=== PATIENT | female | born 1975 | race Hispanic/Latino ===

== ENCOUNTER 2019-01-11 05:38 | Inpatient (IN) | payer SELFPAY ==
[~2019-01-11] VITALS: Ht 157.5 cm; Wt 154.2 kg
--- OUTSIDE RECORDS SUMMARY | 2019-01-11 05:40 | XMS REPORT ---
Author Author Admin, [place] Organization Formerly [facility] Address Unknown Phone Unavailable Allergies, Adverse Reactions, Alerts Allergy Name Reaction Description Start Date Severity Status Provider Allergies Unknown Conditions or Problems Problem Name Problem Code Onset Date Status Entry Date Provider Comment Standard Description Annotate Need for prophylactic vaccination with unspecified combined vaccine V06.9 Active Shy Lazcano COMMUNITY HEALTH EDUCATOR Need for prophylactic vaccination with unspecified combined vaccine Medication List Medication Instructions Start Date Stop Date Generic Name NDC Status Provider Patient Instruction Drug Treatment Unknown - unknown Immunizations Vaccine Administration Date Value Standard Description TB-PPD #2, interpretation of results negative TB-PPD #2, results 0 PPD results in mm 0 TB-PPD, interpretation of results negative Vital Signs Date Name Value Unit Range Description blood pressure, diastolic 78 mm[Hg] BP [place] blood pressure, systolic 118 mm[Hg] BP sys pulse rate E&M 64 /min Heart rate respiratory rate E&M 20 /min Resp rate temperature E&M 97.0 [degF] Body temperature Diagnostic Results Date Name Value Unit Range Description Append: ppd reading - Challenge tests PPD results in mm 0 mm Encounters Date Encounter Provider Code Facility 09:16:41 CDT Est Patient Nurse - Only Visit - 35040 Shy Lazcano COMMUNITY HEALTH EDUCATOR CPT-39915 [facility] 16:57:47 CDT Est Patient Nurse - Only Visit - 44837 Shy Lazcano COMMUNITY HEALTH EDUCATOR CPT-14970 [facility] Procedures Code Procedure Name Date Entry Date Standard Description CPT-09711 Admin of Vaccine - Injection - 1 09:16:41 CDT CPT-34402 PPD - In House 09:16:41 CDT CPT-16019 Admin of Vaccine - Injection - 1 16:57:47 CDT CPT-13438 PPD - In House 16:57:47 CDT
--- OUTSIDE RECORDS SUMMARY | 2019-01-11 05:40 | XMS REPORT ---
Author Author [facility] Address Unknown Phone Unavailable Care Team Providers Care Shank Piece Tacker Name Role Phone Unavailable Unavailable Problems This patient has no known problems. Allergies, Adverse Reactions, Alerts This patient has no known allergies or adverse reactions. Medications This patient has no known medications. Encounters Start Date/Time End Date/Time Encounter Type Admission Type Attending [facility] Facility Care Department Encounter ID 2018-02-18 10:18:48 2018-02-18 10:18:48 Outpatient [facility] [id number] 2018-02-18 08:49:17 2018-02-18 08:49:17 Outpatient [facility] [id number] 2017-07-30 00:00:00 2017-07-30 00:00:00 Outpatient [facility] [id number] 2017-06-03 00:00:00 2017-06-03 00:00:00 Outpatient [facility] [id number] 2017-06-01 08:19:29 2017-06-01 08:19:29 Outpatient [facility] [id number] 2017-04-06 15:13:56 2017-04-06 15:13:56 Outpatient [facility] [id number] 2017-04-06 14:41:02 2017-04-06 14:41:02 Outpatient [facility] [id number] 2017-03-20 09:55:31 2017-03-20 09:55:31 Outpatient [facility] [id number]
[2019-01-11] MEDS ORDERED: PIPER-TAZ 3.375 GM 50 ML IV STA (05:45)
[2019-01-11] MEDS ORDERED: VANCOMYCIN 1GM/NS 250 ML 250 ML IV STA (05:45)
[2019-01-11] MEDS ORDERED: ACETAMINOPHEN 325 MG TAB PO ONE (05:45)
[2019-01-11] MEDS ORDERED: SODIUM CHLORIDE 0.9% 1000ML 1,000 ML IV ONE (05:45)
[2019-01-11] MEDS ORDERED: ACETAMINOPHEN 325 MG TAB ONE (05:58)
[2019-01-11] MEDS ORDERED: ONDANSETRON HCL INJ 2MG/ML 2ML 2 MG/ML VIAL ONE (05:58)
[2019-01-11] MEDS ORDERED: PIPER-TAZ 3.375 GM 50 ML ONE (05:59)
[2019-01-11] MEDS ORDERED: VANCOMYCIN 1GM/NS 250 ML 250 ML ONE (06:07)
[2019-01-11 06:19] LABS: BASOPHILS % 0.1 % (0.0-1.0); EOSINOPHILS % 0.3 % (0.0-6.0); HEMATOCRIT 39.1 % (34.2-44.1); HEMOGLOBIN 12.7 g/dL (12.0-16.0); LYMPHOCYTES % 6.7 % (18.0-39.1); MEAN CORPUSCULAR HEMOGLOBIN 30.7 pg (28-32); MEAN CORPUSCULAR HGB CONC 32.5 g/dL (31-35); MEAN CORPUSCULAR VOLUME 94.4 fL (81-99); MONOCYTES # (AUTO) 0.7 (0.2-0.8); MONOCYTES % 5.1 % (4.4-11.3); NEUTROPHILS # (AUTO) 12.4 (2.1-6.9); NEUTROPHILS % 87.2 % (38.7-80.0); PLATELET COUNT 157 x10e3/uL (140-360); RED BLOOD COUNT 4.14 x10e6/uL (3.6-5.1); RED CELL DISTRIBUTION WIDTH 13.2 % (11.7-14.4)
[2019-01-11 06:39] LABS: ALANINE AMINOTRANSFERASE 20 IU/L (0-55); ALBUMIN 2.8 g/dL (3.5-5.0); ALBUMIN/GLOBULIN RATIO 0.6 (0.8-2.0); ALKALINE PHOSPHATASE 89 IU/L (40-150); ANION GAP 13.9 mmol/L (8-16); BLOOD UREA NITROGEN 9 mg/dL (7-26); BUN/CREATININE RATIO 10 (6-25); CALCIUM 9.1 mg/dL (8.4-10.2); CARBON DIOXIDE 23 mmol/L (22-29); CHLORIDE 97 mmol/L (98-107); CREATININE, SERUM 0.86 mg/dL (0.57-1.11); EST GLOMERULAR FILTRATION RATE > 60 ML/MIN (60-); GLUCOSE 158 mg/dL (74-118); SODIUM 131 mmol/L (136-145)
[2019-01-11 06:41] LABS: POTASSIUM 2.9 mmol/L (3.5-5.1)
[2019-01-11] MEDS ORDERED: POTASSIUM CHLORIDE 20 MEQ TAB CR PO STA (06:41)
[2019-01-11] MEDS ORDERED: VANCOMYCIN 1GM/NS 250 ML 250 ML IV SCH (06:45)
[2019-01-11] MEDS ORDERED: ACETAMINOPHEN 325 MG TAB PO PRN ×2 (06:45→18:30)
[2019-01-11] MEDS ORDERED: ONDANSETRON HCL INJ 2MG/ML 2ML 2 MG/ML VIAL IV PRN ×2 (06:45→18:30)
[2019-01-11] MEDS: SODIUM CHLORIDE 0.9% 1000ML 1,000 ML IV SCH ×2 (06:54→14:34)
[2019-01-11] MEDS: PIPER-TAZ 3.375 GM 50 ML IV SCH ×3 (11:38→23:18)
--- NOTE | 2019-01-11 11:38 | NUR ---
REC'D REPORT IN WALKING ROUNDS WITH HARLEY Kamara FOR CONTUNUITY OF CARE.
--- NOTE | 2019-01-11 13:48 | NUR ---
RM 286 ASSIGNED.
[2019-01-11 14:47] VITALS: BP 108/57
[2019-01-11 15:38] VITALS: BP 108/57
[2019-01-11] MEDS: VANCOMYCIN 1GM/NS 250 ML 250 ML IV SCH (17:59)
[2019-01-11] MEDS ORDERED: TRAMADOL HCL 50 MG TAB PO PRN (18:30)
[2019-01-11] MEDS ORDERED: HYDRALAZINE HCL 20 MG/ML VIAL IV PRN (18:30)
--- NOTE | 2019-01-11 19:00 | NUR ---
RECEIVED REPORT FROM DAY NURSE. PATIENT IS RESTING COMFORTABLY IN BED. BED IS IN LOWEST POSITION AND CALL CAMP[place] IS WITHIN REACH. WILL CONTINUE TO MONITOR PATIENT.
[2019-01-11 20:00] VITALS: BP 141/64
--- NOTE | 2019-01-11 22:30 | NUR ---
received final blood work up report from laboratory. Spoke with on-call healthcare provider. no new orders received. will continue to monitor patient.
[2019-01-12] VITALS (9 sets, daily range): BP systolic 98–123; BP diastolic 54–70
[2019-01-12 05:26] LABS: BASOPHILS % 0.2 % (0.0-1.0); EOSINOPHILS % 0.4 % (0.0-6.0); HEMATOCRIT 36.7 % (34.2-44.1); HEMOGLOBIN 12.1 g/dL (12.0-16.0); LYMPHOCYTES # (AUTO) 1.2 (1.0-3.2); LYMPHOCYTES % 10.4 % (18.0-39.1); MEAN CORPUSCULAR HEMOGLOBIN 31.2 pg (28-32); MEAN CORPUSCULAR VOLUME 94.6 fL (81-99); NEUTROPHILS # (AUTO) 8.8 (2.1-6.9); NEUTROPHILS % 79.5 % (38.7-80.0); PLATELET COUNT 157 x10e3/uL (140-360); RED BLOOD COUNT 3.88 x10e6/uL (3.6-5.1); RED CELL DISTRIBUTION WIDTH 13.3 % (11.7-14.4)
[2019-01-12 05:50] LABS: ALANINE AMINOTRANSFERASE 16 IU/L (0-55); ALBUMIN 2.5 g/dL (3.5-5.0); ALBUMIN/GLOBULIN RATIO 0.6 (0.8-2.0); ALKALINE PHOSPHATASE 82 IU/L (40-150); ANION GAP 12.1 mmol/L (8-16); BLOOD UREA NITROGEN 7 mg/dL (7-26); BUN/CREATININE RATIO 9 (6-25); CALCIUM 8.7 mg/dL (8.4-10.2); CARBON DIOXIDE 21 mmol/L (22-29); CHLORIDE 102 mmol/L (98-107); CHOL/HDL RATIO 4.2 (3.0-3.6); CHOLESTEROL 108 MD/DL (0-199); CREATININE, SERUM 0.77 mg/dL (0.57-1.11); EST GLOMERULAR FILTRATION RATE > 60 ML/MIN (60-); GLUCOSE 123 mg/dL (74-118); HDL CHOLESTEROL 26 MG/DL (40-60); LDL CHOLESTEROL 59 MG/DL (60-130); POTASSIUM 3.1 mmol/L (3.5-5.1); SODIUM 132 mmol/L (136-145); TRIGLYCERIDES 115 MG/DL (0-149)
[2019-01-12] MEDS ORDERED: POTASSIUM CHLORIDE 20 MEQ TAB CR PO STA (05:55)
[2019-01-12 06:10] LABS: THYROID STIMULATING HORMONE 2.464 uIU/mL (0.350-4.940)
[2019-01-12] MEDS ORDERED: DIPHENHYDRAMINE HCL INJ 50 MG/ML VIAL IV PRN (06:15)
[2019-01-12] MEDS: PIPER-TAZ 3.375 GM 50 ML IV SCH ×2 (06:18→11:02)
[2019-01-12] MEDS: VANCOMYCIN 1GM/NS 250 ML 250 ML IV SCH ×2 (06:45→18:30)
--- NOTE | 2019-01-12 06:50 | NUR ---
RECEIVED BEDSIDE SHIFT REPORT FROM OFF GOING NURSE. PATIENT IS RESTING IN BED. NO ACUTE DISTRESS NOTED. CALL LIGHT WITHIN REACH. BED IN THE LOWEST POSITION.
--- NOTE | 2019-01-12 08:22 | NUR ---
GAVE PACKET OF INFORMATION WITH COMMUNITY [employer] FOR ASSISTANCE WITH LOW TO NO INCOME TO PATIENT. RESOURCES THAT PATIENT MAY BE ABLE TO FOLLOW UP UPON DISCHARGE. PT EDUCATED ON EACH RESOURCE AND UNDERSTANDING HOW TO FOLLOW UP TO SEE IF QUALIFIED FOR EACH RESOURCE.
[2019-01-12] MEDS: DIPHENHYDRAMINE HCL 25 MG CAP PO PRN (14:36)
--- NOTE | 2019-01-12 19:18 | NUR ---
RECEIVED REPORT FROM PREVIOUS NURSE. CALL LIGHT WITHIN REACH. PATIENT IN BED.
--- NOTE | 2019-01-12 19:28 | Consultation ---
DATE OF CONSULTATION: HISTORY OF PRESENT ILLNESS: Ms. Moser is a 43-year-old female with history of morbidly obese patient, comes in with redness, cellulitis of her left lower extremity, started few days ago, came here and took oral antibiotic, but was not getting any better, so the patient came back again, where she is being admitted. PAST MEDICAL HISTORY: Obesity. PAST SURGICAL HISTORY: She denies. ALLERGIES: NKA. SOCIAL HISTORY: No smoking, drug abuse, or alcohol abuse. FAMILY HISTORY: Otherwise, unremarkable. PHYSICAL EXAMINATION: GENERAL: She is currently alert, oriented, does not seem to be in acute distress. EXTREMITIES: The leg there is a redness and swelling all the way to from the ankle to the knee. IMPRESSION: 1. Bacteremia gram-positive cocci. 2. Cellulitis of the leg. Agree with vancomycin, however, we will adjust for her kidney function and adjust for weight. We will follow trough. We will follow clinically. Further recommendations depending on clinical course. MD YAYA Jones/MODL /[id number]
[2019-01-13] VITALS (8 sets, daily range): BP systolic 105–148; BP diastolic 53–69
[2019-01-13 04:11] LABS: BASOPHILS % 0.3 % (0.0-1.0); EOSINOPHILS # (AUTO) 0.1 (0.0-0.4); EOSINOPHILS % 1.1 % (0.0-6.0); HEMATOCRIT 36.3 % (34.2-44.1); HEMOGLOBIN 11.5 g/dL (12.0-16.0); LYMPHOCYTES # (AUTO) 1.5 (1.0-3.2); LYMPHOCYTES % 15.5 % (18.0-39.1); MEAN CORPUSCULAR HEMOGLOBIN 30.6 pg (28-32); MEAN CORPUSCULAR HGB CONC 31.7 g/dL (31-35); MEAN CORPUSCULAR VOLUME 96.5 fL (81-99); MONOCYTES # (AUTO) 1.4 (0.2-0.8); MONOCYTES % 14.3 % (4.4-11.3); NEUTROPHILS # (AUTO) 6.4 (2.1-6.9); PLATELET COUNT 198 x10e3/uL (140-360); RED BLOOD COUNT 3.76 x10e6/uL (3.6-5.1); RED CELL DISTRIBUTION WIDTH 13.4 % (11.7-14.4)
[2019-01-13 04:28] LABS: ANION GAP 13.2 mmol/L (8-16); BLOOD UREA NITROGEN 6 mg/dL (7-26); BUN/CREATININE RATIO 9 (6-25); CALCIUM 8.8 mg/dL (8.4-10.2); CARBON DIOXIDE 22 mmol/L (22-29); CHLORIDE 105 mmol/L (98-107); EST GLOMERULAR FILTRATION RATE > 60 ML/MIN (60-); GLUCOSE 121 mg/dL (74-118); POTASSIUM 3.2 mmol/L (3.5-5.1); SODIUM 137 mmol/L (136-145)
[2019-01-13] MEDS ORDERED: POTASSIUM CHLORIDE 20 MEQ TAB CR PO STA (05:01)
[2019-01-13] MEDS: VANCOMYCIN 1GM/NS 250 ML 250 ML IV SCH ×2 (05:23→17:00)
--- NOTE | 2019-01-13 06:50 | NUR ---
RECEIVED BEDSIDE SHIFT REPORT FROM OFF GOING NURSE. PATIENT IS IN STABLE CONDITION. CALL LIGHT WITHIN REACH. BED IN THE LOWEST POSITION.
--- NOTE | 2019-01-13 07:14 | NUR ---
Gave report to oncoming nurse. call light within reach. Patient in bed.
[2019-01-13] MEDS: POTASSIUM CHLORIDE 20 MEQ TAB CR PO SCH ×2 (09:41→17:00)
[2019-01-13] MEDS: FUROSEMIDE INJ 10 MG/ML 4 ML VIAL IV SCH ×2 (09:41→21:00)
--- NOTE | 2019-01-13 10:35 | NUR ---
FIRST UNIT OF BLOOD STARTED AT 1020. NO S/S OF ADVERSE REACTION NOTED. WILL CONTINUE TO MONITOR. Addendum: 01/13/19 at 1556 by NISA MEDINA RN WRONG PATIENT
[2019-01-13] MEDS ORDERED: ONDANSETRON HCL 4 MG ORAL DISINTEGRATING TAB PO PRN (11:45)
--- NOTE | 2019-01-13 19:20 | NUR ---
Received report from previous nurse. Call light within reach. Patient in bed. Family at bedside.
--- NOTE | 2019-01-13 19:36 | NUR ---
BEDSIDE SHIFT REPORT GIVEN TO ONCOMING NURSE. NO ACUTE DISTRESS NOTED. FAMILY AT BEDSIDE. CALL LIGHT WITHIN REACH. BED IN THE LOWEST POSITION.
--- NOTE | 2019-01-13 21:15 | NUR ---
Got consent for PICC placement. Called Radiology to have the person place the PICC line
[2019-01-14] VITALS (9 sets, daily range): BP systolic 106–120; BP diastolic 50–84
--- NOTE | 2019-01-14 03:00 | NUR ---
The yeison for the PICC line placement arrived and placing a PICC in the patient
--- NOTE | 2019-01-14 03:27 | Diagnostic Imaging Report ---
EXAMINATION: CHEST XRAY LINE PLACEMENT INDICATION: PICC. COMPARISON: None FINDINGS: TUBES and LINES: Right arm PICC with tip in the lower SVC near the cavoatrial junction. LUNGS: Low lung volumes. There is no evidence of pneumonia or pulmonary edema. PLEURA: No pleural effusion or pneumothorax. HEART AND MEDIASTINUM: The cardiomediastinal silhouette is unremarkable. BONES AND SOFT TISSUES: No acute osseous abnormality. UPPER ABDOMEN: No free air under the diaphragm. IMPRESSION: Right arm PICC with tip in the lower SVC near the cavoatrial junction. No evidence of pneumothorax. Signed by: Dr. Toni Miller MD on 01/14/2019 3:23 AM
[2019-01-14 03:59] LABS: BASOPHILS % 0.4 % (0.0-1.0); EOSINOPHILS # (AUTO) 0.1 (0.0-0.4); EOSINOPHILS % 1.1 % (0.0-6.0); HEMATOCRIT 36.7 % (34.2-44.1); HEMOGLOBIN 11.9 g/dL (12.0-16.0); LYMPHOCYTES # (AUTO) 1.7 (1.0-3.2); LYMPHOCYTES % 15.3 % (18.0-39.1); MEAN CORPUSCULAR HEMOGLOBIN 31.1 pg (28-32); MEAN CORPUSCULAR HGB CONC 32.4 g/dL (31-35); MEAN CORPUSCULAR VOLUME 95.8 fL (81-99); MONOCYTES # (AUTO) 1.3 (0.2-0.8); MONOCYTES % 11.5 % (4.4-11.3); NEUTROPHILS % 70.3 % (38.7-80.0); PLATELET COUNT 220 x10e3/uL (140-360); RED BLOOD COUNT 3.83 x10e6/uL (3.6-5.1); RED CELL DISTRIBUTION WIDTH 13.4 % (11.7-14.4)
[2019-01-14 04:34] LABS: ANION GAP 16.4 mmol/L (8-16); BLOOD UREA NITROGEN 7 mg/dL (7-26); BUN/CREATININE RATIO 10 (6-25); CALCIUM 8.8 mg/dL (8.4-10.2); CARBON DIOXIDE 22 mmol/L (22-29); CHLORIDE 99 mmol/L (98-107); EST GLOMERULAR FILTRATION RATE > 60 ML/MIN (60-); GLUCOSE 141 mg/dL (74-118); POTASSIUM 3.4 mmol/L (3.5-5.1); SODIUM 134 mmol/L (136-145)
[2019-01-14] MEDS ORDERED: POTASSIUM CHLORIDE 20 MEQ TAB CR PO STA (06:16)
[2019-01-14] MEDS: VANCOMYCIN 1GM/NS 250 ML 250 ML IV SCH ×2 (06:17→17:32)
--- NOTE | 2019-01-14 07:09 | NUR ---
Gave report to oncoming nurse. call light within reach. patient in bed. Mother at bedside
[2019-01-14] MEDS ORDERED: FUROSEMIDE INJ 10 MG/ML 4 ML VIAL IV SCH (09:00)
[2019-01-14] MEDS: FUROSEMIDE 20 MG TAB PO SCH ×2 (09:35→21:52)
--- NOTE | 2019-01-14 15:22 | NUR ---
patient up in bed, denies any pain, not in any distress, family at bed side
--- NOTE | 2019-01-14 19:15 | NUR ---
Patient received from Dayshift RN, patient awake alert, respirations even and unlabored, no c/o pain or discomfort at this time, family sitting at bedside, IV access intact, dressing C/D/I , patent, IV abx therapy completed, IV unhooked, oriented to oncoming staff, will continue to monitor
--- NOTE | 2019-01-14 19:20 | NUR ---
SBAR report received from Dayshift RN, bedside rounding completed, patient awake alert, oriented X 3, respirations even and unlabored, denies pain/discomfort at this time, able to make needs known verbally, bed in lowest position, call light within reach, will continue to monitor
--- NOTE | 2019-01-14 22:00 | NUR ---
bed alarmed, patient seen walking to bathroom independently, advised him to call prior to ambulating for safety, became upset stating "Who put that on, that is not suppose to be on, can you turn that off" advised patient that it will remain on for safety, waited for patient to finish toileting, safety returned to bed, RLF IV site flushed patent, IV abt therapy started patient tolerated well Addendum: 01/15/19 at 0304 by CELIA FITCH RN wrong patient
[2019-01-15] VITALS (8 sets, daily range): BP systolic 95–180; BP diastolic 52–70
--- NOTE | 2019-01-15 03:30 | NUR ---
patient am labs drawn by HARLEY Bolaños from PICC line site using aseptic technique, blood drawn and sent to lab
[2019-01-15 03:57] LABS: BASOPHILS % 0.3 % (0.0-1.0); EOSINOPHILS # (AUTO) 0.1 (0.0-0.4); EOSINOPHILS % 1.2 % (0.0-6.0); HEMATOCRIT 35.5 % (34.2-44.1); HEMOGLOBIN 11.5 g/dL (12.0-16.0); LYMPHOCYTES # (AUTO) 1.7 (1.0-3.2); LYMPHOCYTES % 14.4 % (18.0-39.1); MEAN CORPUSCULAR HEMOGLOBIN 31.1 pg (28-32); MEAN CORPUSCULAR HGB CONC 32.4 g/dL (31-35); MEAN CORPUSCULAR VOLUME 95.9 fL (81-99); MONOCYTES # (AUTO) 1.4 (0.2-0.8); MONOCYTES % 11.3 % (4.4-11.3); NEUTROPHILS # (AUTO) 8.5 (2.1-6.9); NEUTROPHILS % 70.7 % (38.7-80.0); PLATELET COUNT 217 x10e3/uL (140-360); RED CELL DISTRIBUTION WIDTH 13.2 % (11.7-14.4)
[2019-01-15 04:14] LABS: ANION GAP 13.4 mmol/L (8-16); BLOOD UREA NITROGEN 7 mg/dL (7-26); BUN/CREATININE RATIO 10 (6-25); CALCIUM 8.5 mg/dL (8.4-10.2); CARBON DIOXIDE 26 mmol/L (22-29); CHLORIDE 100 mmol/L (98-107); CREATININE, SERUM 0.69 mg/dL (0.57-1.11); EST GLOMERULAR FILTRATION RATE > 60 ML/MIN (60-); GLUCOSE 160 mg/dL (74-118); POTASSIUM 3.4 mmol/L (3.5-5.1); SODIUM 136 mmol/L (136-145)
[2019-01-15] MEDS: VANCOMYCIN 1GM/NS 250 ML 250 ML IV SCH (05:57)
--- NOTE | 2019-01-15 06:05 | NUR ---
Vancomycin given via RENETTA PICC lumen X 2 patent, flushes well, good blood return, no s/sx of infiltration noted, dressing C/D/I
--- NOTE | 2019-01-15 06:50 | NUR ---
RECEIVED BEDSIDE SHIFT REPORT FROM OFF GOING NURSE. PATIENT IS IN STABLE CONDITION. MOTHER AT BEDSIDE. CALL LIGHT WITHIN REACH. BED IN THE LOWEST POSITION.
--- NOTE | 2019-01-15 06:58 | NUR ---
offgoing SBAR report given to Day shift RN, at bedside, patient seen resting with eyes closed, easily awaken, respirations even and unlabored, skin warm dry, introduced to oncoming shift RN, patient was made aware by MD that she will not be discharged today
[2019-01-15] MEDS ORDERED: POTASSIUM CHLORIDE 20 MEQ TAB CR PO STA (07:37)
[2019-01-15 08:10] LABS: NEUTROPHILS % (MANUAL) 70 % (40-74)
[2019-01-15 08:11] LABS: ANISOCYTOSIS SLIGHT; LYMPHOCYTES % (MANUAL) 21 % (19-48); METAMYELOCYTES % (MANUAL) 2 % (0-0); MONOCYTES % (MANUAL) 6 % (3.4-9.0); NUCLEATED RED BLOOD CELLS 1; PLATELET ESTIMATE ADEQUATE; PLATELET MORPHOLOGY COMMENT NORMAL; RBC MORPHOLOGY COMMENT ABNORMAL
[2019-01-15] MEDS: FUROSEMIDE 20 MG TAB PO SCH ×2 (08:49→21:40)
[2019-01-15] MEDS: CEFTRIAXONE SOD 1 GM/NS 50 ML 50 ML IV SCH ×2 (11:26→22:36)
[2019-01-15] MEDS: DIPHENHYDRAMINE HCL 25 MG CAP PO PRN (11:50)
[2019-01-15] MEDS ORDERED: PIPER-TAZ 3.375 GM 50 ML IV SCH (12:00)
--- NOTE | 2019-01-15 19:14 | NUR ---
BEDSIDE SHIFT REPORT GIVEN TO ONCOMING NURSE. PATIENT IS IN STABLE CONDITION. FAMILY AT BEDSIDE. CALL LIGHT WITHIN REACH. BED IN THE LOWEST POSITION.
[2019-01-16] VITALS (8 sets, daily range): BP systolic 105–121; BP diastolic 53–65
--- NOTE | 2019-01-16 00:20 | NUR ---
Assessment done.no resp.distress.no pain voiced.voided.weeping from left lower extremity.bed locked and in lowest position.phone and call light within reach.instructed to call for assistance as needed.
--- NOTE | 2019-01-16 06:10 | NUR ---
WOUND CULTURE COLLECTED FROM LEFT LEG AND SENT TO THE LAB.
--- NOTE | 2019-01-16 06:50 | NUR ---
RECEIVED BEDSIDE SHIFT REPORT RECEIVED FROM OFF GOING NURSE. PATIENT IS IN STABLE CONDITION. AT BEDSIDE. CALL LIGHT WITHIN REACH. BED IN THE LOWEST POSITION.
--- NOTE | 2019-01-16 07:00 | NUR ---
Bed side shift report given to the oncoming Rn.stable condition.
[2019-01-16] MEDS: FUROSEMIDE 20 MG TAB PO SCH ×2 (08:02→20:31)
[2019-01-16] MEDS: CEFTRIAXONE SOD 1 GM/NS 50 ML 50 ML IV SCH ×2 (09:45→22:45)
[2019-01-16] MEDS: DIPHENHYDRAMINE HCL 25 MG CAP PO PRN (15:34)
--- NOTE | 2019-01-16 16:05 | NUR ---
Visit made by the Spiritual Care Department Pastoral Visitor, Carlos Marquez. PV provided pastoral presence, prayer, hospitality, communion, and supportive listening. Pastoral Visitor informed pt/family of the scope of Care Director Rn Services and availability. SCOTT MARION Drill Doctor Spiritual Care Department O: [phone] Pager: [phone] ([phone] number calling from)
--- NOTE | 2019-01-16 19:15 | NUR ---
patient received awake, alert, lying quietly in bed. no c/o pain noted. pm assessment complete. mom noted at the bedside. patient instructed to call for assistance when needed.
--- NOTE | 2019-01-16 19:16 | NUR ---
BEDSIDE SHIFT REPORT GIVEN TO ONCOMING NURSE. PATIENT IS RESTING IN BED. FAMILY AT BEDSIDE. CALL LIGHT WITHIN REACH. BED IN THE LOWEST POSITION.
[2019-01-17] VITALS (8 sets, daily range): BP systolic 99–118; BP diastolic 52–62
--- NOTE | 2019-01-17 03:30 | NUR ---
am labs drawn from right upper arm picc line without difficulty at this time and sent to lab.
[2019-01-17 03:39] LABS: BASOPHILS % 0.4 % (0.0-1.0); EOSINOPHILS # (AUTO) 0.2 (0.0-0.4); EOSINOPHILS % 1.5 % (0.0-6.0); HEMATOCRIT 35.3 % (34.2-44.1); HEMOGLOBIN 11.3 g/dL (12.0-16.0); LYMPHOCYTES # (AUTO) 1.9 (1.0-3.2); LYMPHOCYTES % 18.8 % (18.0-39.1); MEAN CORPUSCULAR HEMOGLOBIN 30.5 pg (28-32); MEAN CORPUSCULAR VOLUME 95.1 fL (81-99); NEUTROPHILS # (AUTO) 6.6 (2.1-6.9); NEUTROPHILS % 65.2 % (38.7-80.0); PLATELET COUNT 225 x10e3/uL (140-360); RED BLOOD COUNT 3.71 x10e6/uL (3.6-5.1); RED CELL DISTRIBUTION WIDTH 13.2 % (11.7-14.4)
[2019-01-17 03:50] LABS: ANION GAP 12.4 mmol/L (8-16); BLOOD UREA NITROGEN 8 mg/dL (7-26); BUN/CREATININE RATIO 12 (6-25); CALCIUM 8.6 mg/dL (8.4-10.2); CARBON DIOXIDE 28 mmol/L (22-29); CHLORIDE 96 mmol/L (98-107); CREATININE, SERUM 0.66 mg/dL (0.57-1.11); EST GLOMERULAR FILTRATION RATE > 60 ML/MIN (60-); GLUCOSE 141 mg/dL (74-118); POTASSIUM 3.4 mmol/L (3.5-5.1); SODIUM 133 mmol/L (136-145)
[2019-01-17] MEDS ORDERED: POTASSIUM CHLORIDE 20 MEQ TAB CR PO STA (05:36)
--- NOTE | 2019-01-17 05:45 | NUR ---
am k+ 3.4 k dur 20meq po given per orders at this time.
[2019-01-17] MEDS: FUROSEMIDE 20 MG TAB PO SCH ×2 (08:38→20:51)
[2019-01-17 09:09] LABS: BAND NEUTROPHILS % (MANUAL) 1 %; LYMPHOCYTES % (MANUAL) 17 % (19-48); MONOCYTES % (MANUAL) 13 % (3.4-9.0); NEUTROPHILS % (MANUAL) 69 % (40-74)
[2019-01-17 09:11] LABS: ANISOCYTOSIS SLIG; HELMET CELLS RARE; OVALOCYTES FEW; PLATELET ESTIMATE ADEQUATE; PLATELET MORPHOLOGY COMMENT FEW LARGE; POIKILOCYTOSIS SLIGHT; RBC MORPHOLOGY COMMENT ABNORMAL
[2019-01-17] MEDS: CEFTRIAXONE SOD 1 GM/NS 50 ML 50 ML IV SCH ×2 (10:28→22:45)
--- NOTE | 2019-01-17 13:56 | NUR ---
called and left voice message to woundcare regarding the consult. Patient resting in bed , not in any distress
--- NOTE | 2019-01-17 14:27 | NUR ---
Nutrition Screen Note RD Recommendation for Physician: - Continue current diet Plan of Care: RD following, monitoring for tolerance and adequacy Nutrition reason for involvement: LOS Primary Diagnose(s): LLE cellulitis PMH: obesity Ht: 62 in Wt: 340 lb BMI: 62.2 kg/m2 IBW: [address] Assessment: (01/17) 43 YOF admitted for LLE cellulitis, seen today for LOS. 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 Pt denies any N/V/C/D. Pt reports UBW of 397 lb, pt with wt of 428.8 lb per bed scale at time of visit- questionable admit wt, pt denies wt loss. Chart reviewed. Labs and meds reviewed. Pt with no questions or concerns at time of visit. Pt discussed during am rounds. Will continue to monitor. Current Diet: Cardiac Malnutrition Evaluation (01/17/19) The patient does not meet criteria for a specified degree of malnutrition at this time. Will re-evaluate at follow-up as appropriate. Diet Education Needs Assessment: Diet education not indicated. Diet tolerance: tolerating po Nutrition Care Level: low Signed: Ruby Maynard RD, LD, [facility]
--- NOTE | 2019-01-17 19:15 | NUR ---
patient received awake, alert, lying quietly in bed. no c/o pain noted at this time. pm assessment complete. mother noted at the bedside. patient/mother instructed to call for assistance when needed.
[2019-01-18] VITALS: BP 121/59
--- NOTE | 2019-01-18 03:00 | NUR ---
0300 labs drawn from right upper arm picc line without difficulty at this time and sent to lab.
[2019-01-18 03:29] LABS: BASOPHILS % 0.4 % (0.0-1.0); EOSINOPHILS # (AUTO) 0.2 (0.0-0.4); EOSINOPHILS % 1.6 % (0.0-6.0); HEMATOCRIT 35.7 % (34.2-44.1); HEMOGLOBIN 11.5 g/dL (12.0-16.0); LYMPHOCYTES # (AUTO) 1.7 (1.0-3.2); LYMPHOCYTES % 16.6 % (18.0-39.1); MEAN CORPUSCULAR HEMOGLOBIN 30.7 pg (28-32); MEAN CORPUSCULAR HGB CONC 32.2 g/dL (31-35); MEAN CORPUSCULAR VOLUME 95.5 fL (81-99); MONOCYTES % 9.6 % (4.4-11.3); NEUTROPHILS # (AUTO) 7.1 (2.1-6.9); NEUTROPHILS % 69.2 % (38.7-80.0); PLATELET COUNT 244 x10e3/uL (140-360); RED BLOOD COUNT 3.74 x10e6/uL (3.6-5.1)
[2019-01-18 03:49] LABS: ANION GAP 10.7 mmol/L (8-16); BLOOD UREA NITROGEN 8 mg/dL (7-26); BUN/CREATININE RATIO 12 (6-25); CALCIUM 8.8 mg/dL (8.4-10.2); CARBON DIOXIDE 31 mmol/L (22-29); CHLORIDE 95 mmol/L (98-107); CREATININE, SERUM 0.68 mg/dL (0.57-1.11); EST GLOMERULAR FILTRATION RATE > 60 ML/MIN (60-); GLUCOSE 147 mg/dL (74-118); MAGNESIUM 1.8 MG/DL (1.3-2.1); POTASSIUM 3.7 mmol/L (3.5-5.1); SODIUM 133 mmol/L (136-145)
[2019-01-18 04:00] VITALS: BP 113/65
[2019-01-18 07:50] VITALS: BP 111/54
--- NOTE | 2019-01-18 09:00 | NUR ---
WOUND CARE CONSULT FOR 43 YO FEMALE HX OF CELLULITIS AND 2+ PITTING EDEMA LEFT LOWER LEG LABS: WBC- 10.15,HGB- 11.3, GLUCOSE 141,HEM A1C - 6.1 BLOOD CULTURE: POSITIVE STREP A WOUND CULTURE : LEFT LOWER LEG NO FINDINGS FOR 2 DAYS VENOUS DOPPLER :R/O THROMBUS SKIN ASSESSMENT COMPLETE PATIENT OBESE PRESENTS WITH LARGE LOWER EXTREMITIES LEFT LOWER LEG MARKEDLY LARGER THAN RIGHT ANKLE MEASURES 12CM AND CALVE 26CM CIRCUMFERENCE WITH 2+ PITTING EDEMA RED AND CELLULITIC LARGE BLISTERED AREA TO LOWER ASPECT 30CM X 55CM X WITH OPEN AREA .2 CM DEPTH LOWER PART OF LEFT POSTERIOR THIGH MEASURES 15CM X 15CM BLISTER RECOMMENDATIONS : NURSING TO ASSIST PATIENT TO SITTING POSITION MUCH TOLERATED MAINTAINING ELEVATION OF LEFT LOWER EXTREMITY NURSING TO MAINTAIN AREA TO BE CLEAN AND DRY MAY USE ABSORBANT PAD UNDER AND ABOVE LEG TO CONTROL DRAINAGE NURSING TO APPLY VENELEX OINTMENT TO LEFT THIGH AND LOWER LEG DAILY LEAVE OPEN TO AIR USE CHUX PAD ABOVE AND UNDER TO CONTROL ANY MOISTURE Addendum: 01/18/19 at 0919 by Amrit Baird RN Amended: Links added.
[2019-01-18] MEDS: FUROSEMIDE 20 MG TAB PO SCH (09:47)
[2019-01-18] MEDS: CEFTRIAXONE SOD 1 GM/NS 50 ML 50 ML IV SCH (09:47)
[2019-01-18 09:59] VITALS: BP 111/54
[2019-01-18 11:45] VITALS: BP 103/51
[2019-01-18] MEDS ORDERED: ULTRAM 50MG50 MG PO (15:47)
[2019-01-18 15:50] VITALS: BP 107/52
[2019-01-18] MEDS ORDERED: KEFLEX500 MG PO (17:51)
[2019-01-19] MEDS ORDERED: BALSAM PERU/CASTOR OIL 5 GM OINT...G. TP SCH (09:00)
--- NOTE | 2019-01-19 09:32 | Discharge Summary ---
CONSULTING PHYSICIAN: Dr. Katie Eddy, Infectious Disease. PRIMARY CARE PHYSICIAN: Dr. Aubrey Ren. CHIEF COMPLAINT: Cellulitis of left lower extremity. ALLERGIES: NO KNOWN ALLERGIES. HOSPITAL COURSE: This is a 43-year-old female with history of morbid obesity, got admitted on 01/11/2019 with complaints of redness and cellulitis to her left lower extremity associated with fever. The patient initially was treated as an outpatient with oral antibiotic, which was failed and she got admitted to the hospital. While in the hospital, her blood culture x2 sets showed Streptococcus A and she got evaluated by Infectious Disease and was placed on Rocephin IV. No fever or chills reported. The patient has been cleared by Infectious Disease to go home on Keflex 500 mg three times a day for ten days. Her vital signs include temperature 97.8, heart rate 82, blood pressure 103/51, respiratory rate is 18, and oxygen saturation is 96%. We will send the patient on tramadol 50 mg every 6 hours as needed for her pain and the patient also has a prescription for Keflex 500 mg p.o. three times a day for ten days. ASSESSMENT: GENERAL: No acute distress, morbidly obese. LUNGS: Clear to auscultate. HEENT: Moist mucous membranes. NECK: Supple. CARDIOVASCULAR: Regular rate and rhythm. ABDOMEN: Soft and nontender. EXTREMITIES: Left lower leg with redness and cellulitis improved, have ulcer and open wound. NEUROLOGIC: Nonfocal. LABORATORY DATA: From 01/18/2019, WBCs 10.1, hemoglobin is 11.5, hematocrit is 35.7, and platelets 244. Sodium is 133, potassium is 3.7, chloride is 95, CO2 is 31, BUN is 8, creatinine is 0.68, and glucose is 147. DIAGNOSES: 1. Bacteremia. Blood culture that showed gram-positive cocci. Will be continuing on Keflex 500 mg p.o. three times a day for ten days. Left lower extremity with cellulitis and some open wounds, continue wound care at home. 2. The patient upon discharge is stable and follow up with Infectious Disease in 1 to 2 weeks and primary care physician in 1 to 2 weeks. Dictated by Chhaya Jarrell, CHARMAINE MD DIONI Jj/BERTHA /[id number]
== END 2019-01-18 18:23 | disposition home or self-care (01) | DRG 872 ==
LOC: ER 05:38 → ERHOLD 06:54 → MED/SURG3 14:15
PROVIDERS: ADMIT Internal Medicine; ATTEND Internal Medicine
PROC: 02HV33Z Insertion of Infusion Device into Superior Vena Cava, Percutaneous Approach (ICD-10-PCS; principal; 2019-01-14)
DX: A41.9 Sepsis, unspecified organism (principal); L03.116 Cellulitis of left lower limb; Z68.44 Body mass index [BMI] 60.0-69.9, adult; E87.6 Hypokalemia; E66.01 Morbid (severe) obesity due to excess calories; B96.89 Other specified bacterial agents as the cause of diseases classified elsewhere; E87.8 Other disorders of electrolyte and fluid balance, not elsewhere classified
CPT/HCPCS: 36415; 36569; 71045; 80048; 80053; 80061; 80202; 83036; 83605; 83735; 84443; 85025; 87040; 87071; 87205; 93306; 93971; 96365; 99284; J0696; J1200; J1940; J2405; J2543; J3370; J7030

== ENCOUNTER 2024-02-14 13:36 | Emergency (ER) | payer SELFPAY ==
[~2024-02-14] VITALS: Ht 157.5 cm; Wt 183.7 kg
[~2024-02-14 13:36] MED LIST: KEFLEX500 MG PO; ULTRAM 50MG50 MG PO
[2024-02-14 13:43] VITALS: PULSE 93; RESP 20; TEMP 99.5; O2SAT 100
[2024-02-14] MEDS ORDERED: MUPIROCIN22 GM TOP (15:20)
== END 2024-02-14 15:34 | disposition home or self-care (01) ==
LOC: ER 15:03
DX: R50.9 Fever, unspecified (principal); L73.9 Follicular disorder, unspecified; E11.9 Type 2 diabetes mellitus without complications; E66.01 Morbid (severe) obesity due to excess calories
CPT/HCPCS: 99283